=== PATIENT | female | born 1960 | race Caucasian/White ===

== ENCOUNTER 2022-05-03 23:29 | Emergency (ER) | payer OTHER, SELFPAY ==
--- NOTE | 2022-05-03 23:35 | ED.GENADUL_ITS ---
Discharge Plan Disposition Patient Disposition: Home Condition: Stable Discharge Details Clinical Impression: Rib contusion, Abrasion of back, Contusion of right shoulder, Abrasion of right elbow Primary Care Provider: [place],Local ED Provider: Ruby Robertson Home Meds and New Rx's Prescriptions: Continued fexofenadine 60 mg Capsule 60 mg PO BID simvastatin 40 mg Tablet 40 mg PO DAILY estradiol 0.5 mg Tablet 0.5 mg PO DAILY escitalopram oxalate 20 mg Tablet 20 mg PO DAILY Discharge Instructions Instructions: Contusion in Adults (ED), Abrasion (ED), Rib Contusion (ED) Additional Instructions: Your imaging today is reassuring and shows no evidence of acute fracture. You may still have a small rib fracture which is not seen on x-ray imaging but is treated the same with pain control, rest and ice. Apply ice to the affected area several times daily for 20 minutes at a time. Take 500 mg Tylenol every 4 hours and 600 mg of ibuprofen every 6 hours as needed and directed for pain. Take the oxycodone for pain not relieved with Tylenol or ibuprofen. Follow-up with your primary care doctor in 1 week. Return to the emergency department with any worsening or new concerning symptoms such as chest pain, difficulty breathing, abdominal pain, worsening back pain, blood in your urine or any other concerns. Discharge Data Discharge Physician: Ruby Robertson Medical Decision Making 61-year-old female visiting from [place] presents with mostly left lower back pain status post mechanical fall down 12 stairs 1 hour ago. Also complaining of mild pain in her right upper back, right shoulder and right elbow. Denies head injury, chest pain, abdominal pain. Her blood pressure is hypertensive which may be a component of pain. Patient appears quite uncomfortable. She has superficial abrasions noted to her right lateral elbow, right upper back. Her most significant area of pain is her left lower back just inferior to the lowest ribs. There is no evidence of step-off. Her lungs are clear bilaterally. Her chest and abdomen is nontender. She has no significant pain with range of motion in her right shoulder or elbow, but c onsidering her distracting injury in her left lower back, will obtain right shoulder, right elbow and bilateral ribs and chest x-ray. We will give a dose of oxycodone and Valium p.o. Imaging reviewed and negative for acute findings. Patient was able to urinate and urine appeared within normal limits without gross hematuria. Patient reassessed and she feels much better and was able to ambulate and feels comfortable going home. We will send with oxycodone for pain relief. Advised alternate Tylenol and Motrin in addition to ice. Advised to follow up with the primary care doctor for re-evaluation. Usual and customary return precautions given prior to discharge. Medical Records Medical records reviewed: Yes I reviewed the patient's medical records. Imaging Data Radiologic Study: Radiologist's impression: XR Ribs with PA Chest Exam date and time: 05/04/2022 12:15 AM Age: 61 years old Clinical indication: Injury or trauma; Rib area, bilateral; Blunt trauma; Injury date: 05/03/22; Patient HX: Left lower/r upper rib pain, S/P fall, R/O FX TECHNIQUE: Imaging protocol: Radiologic exam of the bilateral ribs with PA chest. Views: 4 views COMPARISON: No relevant prior studies available. FINDINGS: Lungs: Unremarkable. No consolidation. Pleural spaces: Unremarkable. No pleural effusion. No pneumothorax. Heart/Mediastinum: Unremarkable. No cardiomegaly. Bones/joints: Unremarkable. IMPRESSION: No acute findings. XR Right Shoulder Exam date and time: 05/04/2022 12:22 AM Age: 61 years old Clinical indication: Injury or trauma; Blunt trauma (contusions or hematomas); Shoulder; Right; Injury date: 05/03/22; Injury details: Fall/r/o FX TECHNIQUE: Imaging protocol: Radiologic exam of the Right shoulder. Views: 2 or more views. COMPARISON: CR XR RIBS BI INCLUDE CHEST 05/04/2022 12:15 AM FINDINGS: Bones/joints: Normal. Soft tissues: Normal. IMPRESSION: No acute findings. XR Right Elbow Exam date and time: 05/04/2022 12:28 AM Age: 61 years old Clinical indication: Injury or trauma; Blunt trauma (contusions or hematomas); Elbow; Right; Injury date: 05/03/22; Injury details: Fall, R/O FX TECHNIQUE: Imaging protocol: Radiologic exam of the Right elbow. Views: 3 or more views. COMPARISON: CR XR SHOULDER RT COMPLETE 2+V 05/04/2022 12:22 AM FINDINGS: Bones/joints: Normal. Soft tissues: Normal. IMPRESSION: No acute findings. HPI General Mode of arrival: ambulatory . Date/Time Provider Initiated Documentation: 05/03/22 23:35 . Limitations to Documentation: no limitations . Information obtained by: patient . HPI Narrative: Patient is a 61-year-old female who presents to the ED with a complaint of back and arm pain after mechanical fall 1 hour ago. Patient states she is here skiing visiting from [place] and staying at a house nearby. Patient states she got up to use the bathroom and was unfamiliar with the surroundings and slipped and fell down 12 stairs. She states she tumbled and rolled on the way down. She denies head injury, LOC or vomiting. Patient states she is mainly having pain in her left lower back. She states she also hit her right arm and right upper back and is having some mild pain in these areas as well. She states she took 3 tabs of ibuprofen without relief. She denies chest pain, difficulty breathing, abdominal pain or other orthopedic pain or injury. She is not taking any anticoagulation. She is staying here for the next week and then returning to [place]. Related Data Home Medications Medication Instructions Recorded Confirmed escitalopram oxalate 20 mg tablet 20 mg PO DAILY 05/03/22 05/03/22 estradiol 0.5 mg tablet 0.5 mg PO DAILY 05/03/22 05/03/22 fexofenadine 60 mg capsule 60 mg PO BID 05/03/22 05/03/22 simvastatin 40 mg tablet 40 mg PO DAILY 05/03/22 05/03/22 Allergies Allergy/AdvReac Type Severity Reaction Status Date / Time sulfamethoxazole Allergy Mild Hives Unverified 05/03/22 23:35 [From Bactrim] trimethoprim [From Bactrim] Allergy Mild Hives Unverified 05/03/22 23:35 General Stated Complaint: Fall/Non TraumaCriteria SAHRA: 3 Review of Systems All systems reviewed & are unremarkable except as noted in HPI and below Constitutional Constitutional: Reports as per HPI, Denies chills and Denies fever(s) Eyes Eyes: Denies blurry vision ENT Ears, Nose, Mouth, and Throat: Denies dizziness, Denies sore throat and Denies t hroat swelling Cardiovascular Cardiovascular: Denies chest pain and Denies dyspnea Respiratory Respiratory: Denies cough and Denies dyspnea Gastrointestinal Gastrointestinal: Denies abdominal pain, Denies diarrhea and Denies vomiting Genitourinary Genitourinary: Denies hematuria and Denies dysuria Musculoskeletal Musculoskeletal: Reports back pain and Denies numbness Comments: R shoulder and elbow pain Integumentary/Breasts Skin/Breast: Denies lesions and Denies rash Neurologic Neurologic: Denies dizziness, Denies localized weakness and Denies numbness Allergic/Immunologic Allergic/Immunologic: Denies throat swelling PFSH All Active Problems (Updated 05/04/22 @ 01:02 by Ruby Robertson DO) Rib contusion (Acute) Abrasion of back (Acute) Contusion of right shoulder (Acute) Abrasion of right elbow (Acute) Medical History (Updated 05/04/22 @ 01:02 by Ruby Robertson DO) Depression Hx of hyperlipidemia Surgical History (Updated 05/04/22 @ 00:00 by Ruby Robertson DO) History of back surgery History of hysterectomy Social History (Updated 05/04/22 @ 00:19 by Ruby Robertson DO) Smoking/Tobacco Use Status: Never Smoking risk assessment performed?: Yes Alcohol Intake: current Alcohol Intake frequency: holidays/special occasions only Drug use: Never Exam Const General: cooperative, healthy appearing and no acute distress Orientation: alert, awake and oriented x3 HENMT Head: normal to inspection Face and sinus: normal facial exam Eyes General: appearance normal, both eyes and all related structures Pupils: PERRL EOM: EOM intact bilaterally Neck Neck: normal visual inspection and No submandibular swelling Lymphatic: no lymphadenopathy noted Chest Chest: normal inspection of the chest, normal palpation of entire chest wall and no tenderness Resp Effort & Inspection: normal respiratory effort and able to speak in complete sentences Auscultation: clear to auscultation bilaterally Cardio Rate: regular rate Rhythm: regular rhythm GI Inspection: normal to inspection Palpation: soft, not firm, not rigid and nontender Auscultation: hypoactive bowel sounds Back/Spine/Pelvis Cervical Spine: No cervical spinal tenderness Thoracic/Lumbar Spine: thoracic and lumbar spine normal to inspection, No thoracic spinal tenderness and No lumbar spinal tenderness Pelvis: no pain with anterior-posterior compression Back/spine/pelvis image: 1. Localized area of tenderness extending from left inferior ribs to inferior left lumbar paraspinal region. There is no evidence of edema, erythema, ecchymosis or abrasion. 2. Horizontal linear superficial abrasions. No significant tenderness to palpation. No step-off. Skin General skin exam: no rashes or lesions noted Neuro General: patient alert, patient awake and patient oriented x3 Cognition: normal cognition Speech: speech normal Motor: muscle tone normal throughout Sensory Exam: no sensory deficits noted Extrem General: normal to inspection and no edema Shoulder/upper arm images: 1. Superficial abrasion. Tenderness to palpation to right olecranon. No significant pain with flexion, extension, pronation or supination of right elbow. No edema, erythema, ecchymosis or deformity to right elbow noted. 2. Tenderness to palpation to right anterior shoulder. No edema, ecchymosis, erythema or significant pain with range of motion or deformity noted. Other: Remainder of bilateral upper and lower extremities normal to inspection without pain with range of motion or deformity noted. Psych Appearance: grossly normal Mental Status: mental status grossly normal Speech and Movement: speech and movement normal Affect: normal affect
[2022-05-03 23:39] VITALS: BP 185/89; PULSE 97; RESP 26; TEMP 36.9; O2SAT 94
--- NOTE | 2022-05-03 23:45 | DI.RAD_ITS ---
Exam(s) XR ELBOW RT COMPLETE EXAM: XR ELBOW RT COMPLETE CLINICAL HISTORY: s/p fall, r/o fx. TECHNIQUE: 2D digital imaging was performed of the left elbow. Three images were obtained. AP, lat eral and oblique views were obtained. COMPARISON: No exams were available for comparison FINDINGS: BONES: No acute fracture is present. No bony destructive lesion is seen. JOINTS: The elbow is normally aligned. No joint effusion is seen. SOFT TISSUE: Normal. IMPRESSION: Unremarkable radiographs of the right elbow. DATA REPOSITORY: RADIATION DOSE DELIVERED:
--- NOTE | 2022-05-03 23:45 | DI.RAD_ITS ---
Exam(s) XR RIBS BI INCLUDE CHEST EXAM: XR RIBS BI INCLUDE CHEST CLINICAL HISTORY: Left lower/R upper rib pain, s/p fall, r/o fx TECHNIQUE: 2D digital imaging was performed. Six images were obtained. COMPARISON: No exams were available for comparison FINDINGS: MEDIASTINUM: Normal. HEART: Normal. PULMONARY VASCULATURE: Normal. LUNGS: Clear. PLEURAL SPACE: No pleural effusion or pneumothorax. BONE:Normal. BILATERAL RIBS: Normal. OTHER FINDINGS:Normal. IMPRESSION: 1. No acute pulmonary findings. 2. Unremarkable ribs. DATA REPOSITORY: RADIATION DOSE DELIVERED:
--- NOTE | 2022-05-03 23:45 | DI.RAD_ITS ---
Exam(s) XR SHOULDER RT COMPLETE 2+V EXAM: XR SHOULDER RT COMPLETE 2+V CLINICAL HISTORY: s/p fall, r/o fx. TECHNIQUE: 2D digital imaging was performed of the right shoulder. Five images were obtained. AP, Grashey, Y-view and axillary views were obtained. COMPARISON: No exams were available for comparison FINDINGS: BONES: No acute fracture is present. No bony destructive lesion is seen. JOINTS: No dislocation present. SOFT TISSUE: Normal. IMPRESSION: Unremarkable radiographs of the right shoulder. DATA REPOSITORY: RADIATION DOSE DELIVERED:
[2022-05-04] MEDS: diazePAM 5 MG TAB PO (00:05)
[2022-05-04] MEDS: oxyCODONE 5 MG TAB PO (00:05)
--- NOTE | 2022-05-04 00:48 | DI.VRAD_ITS ---
PROCEDURE INFORMATION: Exam: XR Right Shoulder Exam date and time: 05/04/2022 12:22 AM Age: 61 years old Clinical indication: Injury or trauma; Blunt trauma (contusions or hematomas); Shoulder; Right; Injury date: 05/03/22; Injury details: Fall/r/o FX TECHNIQUE: Imaging protocol: Radiologic exam of the Right shoulder. Views: 2 or more views. COMPARISON: CR XR RIBS BI INCLUDE CHEST 05/04/2022 12:15 AM FINDINGS: Bones/joints: Normal. Soft tissues: Normal. IMPRESSION: No acute findings. Dictated and Authenticated by: Reagan Grace MD. Ordering:KATARZYNA Beltran MD
--- NOTE | 2022-05-04 00:48 | DI.VRAD_ITS ---
PROCEDURE INFORMATION: Exam: XR Right Elbow Exam date and time: 05/04/2022 12:28 AM Age: 61 years old Clinical indication: Injury or trauma; Blunt trauma (contusions or hematomas); Elbow; Right; Injury date: 05/03/22; Injury details: Fall, R/O FX TECHNIQUE: Imaging protocol: Radiologic exam of the Right elbow. Views: 3 or more views. COMPARISON: CR XR SHOULDER RT COMPLETE 2+V 05/04/2022 12:22 AM FINDINGS: Bones/joints: Normal. Soft tissues: Normal. IMPRESSION: No acute findings. Dictated and Authenticated by: Reagan Grace MD. Ordering:KATARZYNA Beltran MD
--- NOTE | 2022-05-04 00:49 | DI.VRAD_ITS ---
PROCEDURE INFORMATION: Exam: XR Ribs with PA Chest Exam date and time: 05/04/2022 12:15 AM Age: 61 years old Clinical indication: Injury or trauma; Rib area, bilateral; Blunt trauma; Injury date: 05/03/22; Patient HX: Left lower/r upper rib pain, S/P fall, R/O FX TECHNIQUE: Imaging protocol: Radiologic exam of the bilateral ribs with PA chest. Views: 4 views COMPARISON: No relevant prior studies available. FINDINGS: Lungs: Unremarkable. No consolidation. Pleural spaces: Unremarkable. No pleural effusion. No pneumothorax. Heart/Mediastinum: Unremarkable. No cardiomegaly. Bones/joints: Unremarkable. IMPRESSION: No acute findings. Dictated and Authenticated by: Reagan Grace MD. Ordering:KATARZYNA Beltran MD
[2022-05-04 01:06] VITALS: BP 153/77; PULSE 93; RESP 16; TEMP 36.8; O2SAT 96
== END 2022-05-04 01:33 | disposition home or self-care (01) ==
PROVIDERS: Emergency Provider Physician Assistant
DX: S20.212A Contusion of left front wall of thorax, initial encounter (principal); S30.810A Abrasion of lower back and pelvis, initial encounter; S40.011A Contusion of right shoulder, initial encounter; S50.311A Abrasion of right elbow, initial encounter; W10.8XXA Fall (on) (from) other stairs and steps, initial encounter
CPT/HCPCS: 99284; 71046; 71110; 73030; 73080